=== PATIENT | female | born 1955 | race Hispanic/Latino ===

== ENCOUNTER 2020-12-29 15:08 | Inpatient (IN) | payer MEDICARE ==
[2020-12-29 16:22] LABS: #Basophils 0.1 thou/uL (0.0-0.2); #Eosinphils 0.3 thou/uL (0.0-0.7); #Lymphocytes 2.1 thou/uL (1.20-3.40); #Monocytes 0.7 thou/uL (0.11-0.59); #Neutrophils 9.7 thou/uL (1.40-6.50); %Basophils 0.6 % (0.0-1.0); %Eosinophils 2.7 % (0.0-10.0); %Lymphocytes 16.2 % (21.0-51.0); %Monocytes 5.2 % (0.0-10.0); %Neutrophils 75.3 % (42.0-75.0); Hemoglobin 11.9 g/dL (12.0-16.0); Mean Corpuscular HGB CONC 31.9 g/dL (32.0-36.0); Mean Corpuscular Hemoglobin 29.4 pg (27.0-31.0); Mean Corpuscular Volume 91.9 fL (78.0-98.0); Mean Platelet Volume 7.6 fL (7.4-10.4); Platelet Count 447 thou/uL (130-400); RBC Distribution Width 14.7 % (11.5-14.5); Red Blood Cell (RBC) Count 4.07 mill/uL (4.20-5.40); White Blood Cell (WBC) Count 12.9 thou/uL (4.8-10.8)
[2020-12-29 16:43] LABS: ALT (SGPT) 13 U/L (8-55); AST (SGOT) 11 U/L (5-34); Albumin 3.2 g/dL (3.4-4.8); Alkaline Phosphatase 119 U/L (40-110); Anion Gap 16 mmol/L (10-20); BUN (Urea Nitrogen) 26 mg/dL (9.8-20.1); Bilirubin, Total 0.3 mg/dL (0.2-1.2); Calc. Creatinine Clearance 0 mL/min (70-130); Calcium 11.3 mg/dL (7.8-10.44); Carbon Dioxide 26 mmol/L (23-31); Chloride 102 mmol/L (98-107); Globulin 4.2 g/dL (2.4-3.5); Glucose 181 mg/dL (80-115); Potassium 3.8 mmol/L (3.5-5.1); Protein, Total 7.4 g/dL (5.8-8.1); Sodium 140 mmol/L (136-145)
[2020-12-29 20:51] LABS: Bacteria/HPF 4+ HPF (None Seen); Bilirubin Negative (Negative); Blood, Urine Negative (Negative); Clarity Turbid (Clear); Glucose, Urine (Dipstick) Normal (Negative); Ketone, Urine 10 mg/dL (Negative); Leukocyte Negative Leu/uL (Negative); Nitrite Negative (Negative); Protein, Urine (Dipstick) 30 mg/dL (Neg-Trace); RBC/HPF 0-3 HPF (0-3); Specific Gravity, Urine 1.018 (1.002-1.036); Transitional Epithelial 0-3 HPF (None Seen); Urobilinogen Normal mg/dL (Less than 2); WBC/HPF 21-50 HPF (0-3)
[2020-12-29] MEDS ORDERED: cefTRIAXone\\ROCEPHIN 1 GM VIAL ONE (23:02)
[2020-12-30] MEDS ORDERED: Ondansetron ODT 4 MG TAB PO PRN (02:12)
[2020-12-30] MEDS ORDERED: Ondansetron PF 4 MG/2 ML Vial IVP PRN (02:12)
[2020-12-30 02:23] LABS: SARS-CoV-2 NAA Rapid Test Not Detected (NotDetected)
[2020-12-30] MEDS ORDERED: Ondansetron PF 4 MG/2 ML Vial ONE (03:39)
[2020-12-30] MEDS: Sodium Chloride 0.9% 1,000 ML IV SCH ×2 (03:52→11:12)
[2020-12-30 07:36] LABS: #Basophils 0.1 thou/uL (0.0-0.2); #Eosinphils 0.5 thou/uL (0.0-0.7); #Lymphocytes 2.2 thou/uL (1.20-3.40); #Monocytes 0.7 thou/uL (0.11-0.59); #Neutrophils 10.5 thou/uL (1.40-6.50); %Basophils 0.4 % (0.0-1.0); %Eosinophils 3.4 % (0.0-10.0); %Lymphocytes 15.6 % (21.0-51.0); %Neutrophils 75.7 % (42.0-75.0); Hemoglobin 11.1 g/dL (12.0-16.0); Mean Corpuscular HGB CONC 32.5 g/dL (32.0-36.0); Mean Corpuscular Hemoglobin 29.5 pg (27.0-31.0); Mean Corpuscular Volume 90.8 fL (78.0-98.0); Mean Platelet Volume 7.5 fL (7.4-10.4); Platelet Count 388 thou/uL (130-400); RBC Distribution Width 14.8 % (11.5-14.5); Red Blood Cell (RBC) Count 3.74 mill/uL (4.20-5.40); White Blood Cell (WBC) Count 13.9 thou/uL (4.8-10.8)
[2020-12-30 07:50] LABS: Anion Gap 15 mmol/L (10-20); BUN (Urea Nitrogen) 16 mg/dL (9.8-20.1); Calc. Creatinine Clearance 63 mL/min (70-130); Carbon Dioxide 25 mmol/L (23-31); Chloride 105 mmol/L (98-107); Glucose 155 mg/dL (80-115); Potassium 3.6 mmol/L (3.5-5.1); Sodium 141 mmol/L (136-145)
[2020-12-30] MEDS: HYDROcodone/Acetaminophen 5/325 mg Tablet PO PRN (10:37)
[2020-12-30] MEDS ORDERED: HumaLOG 300 UNITS/3 ML VIAL SC PRN ×2 (11:33)
[2020-12-30] MEDS ORDERED: Dextrose 50% Abboject 50 ML SYRINGE SLOW IVP PRN (11:33)
[2020-12-30] MEDS ORDERED: Dextrose 5% in Water 1,000 ML IV PRN (11:33)
[2020-12-30 14:02] LABS: Bacteria/HPF 3+ HPF (None Seen); Bilirubin Negative (Negative); Blood, Urine Negative (Negative); Clarity Turbid (Clear); Glucose, Urine (Dipstick) Normal (Negative); Ketone, Urine 40 mg/dL (Negative); Leukocyte 250 Leu/uL (Negative); Nitrite 1+ (Negative); Protein, Urine (Dipstick) 20 mg/dL (Neg-Trace); RBC/HPF 0-3 HPF (0-3); Specific Gravity, Urine 1.015 (1.002-1.036); Squamous Epithelial 0-3 HPF (0-3); Urobilinogen Normal mg/dL (Less than 2); WBC/HPF Greater than 50 HPF (0-3); pH, Urine 7.5 (5.0-9.0)
[2020-12-30 14:04] LABS: Urine Culture Reflex Yes Yes
[2020-12-30] MEDS ORDERED: Lactated Ringer's 500 ML IV SCH (14:15)
[2020-12-30] MEDS ORDERED: hydrALAZINE 20 MG/ML VIAL SLOW IVP PRN (15:07)
[2020-12-30] MEDS ORDERED: Labetalol HCl 100 MG/20 ML VIAL SLOW IVP PRN (15:08)
[2020-12-30] MEDS: Lactated Ringer's 1,000 ML IV SCH (16:46)
[2020-12-30] MEDS: cefTRIAXone\\ROCEPHIN 1 GM in Sodium Chloride 0.9% 100 ML IVPB SCH (23:04)
[2020-12-31] MEDS: Lactated Ringer's 1,000 ML IV SCH ×2 (00:20→15:25)
[2020-12-31 06:55] LABS: #Basophils 0.1 thou/uL (0.0-0.2); #Eosinphils 0.4 thou/uL (0.0-0.7); #Lymphocytes 1.7 thou/uL (1.20-3.40); #Monocytes 0.6 thou/uL (0.11-0.59); #Neutrophils 8.1 thou/uL (1.40-6.50); %Basophils 0.6 % (0.0-1.0); %Eosinophils 3.7 % (0.0-10.0); %Lymphocytes 15.6 % (21.0-51.0); %Monocytes 5.6 % (0.0-10.0); %Neutrophils 74.5 % (42.0-75.0); Hemoglobin 9.3 g/dL (12.0-16.0); Mean Corpuscular HGB CONC 32.9 g/dL (32.0-36.0); Mean Corpuscular Hemoglobin 29.9 pg (27.0-31.0); Mean Corpuscular Volume 90.9 fL (78.0-98.0); Mean Platelet Volume 7.4 fL (7.4-10.4); Platelet Count 318 thou/uL (130-400); Red Blood Cell (RBC) Count 3.12 mill/uL (4.20-5.40); White Blood Cell (WBC) Count 10.8 thou/uL (4.8-10.8)
[2020-12-31 07:14] LABS: Anion Gap 10 mmol/L (10-20); BUN (Urea Nitrogen) 10 mg/dL (9.8-20.1); Calc. Creatinine Clearance 63 mL/min (70-130); Calcium 8.9 mg/dL (7.8-10.44); Carbon Dioxide 27 mmol/L (23-31); Chloride 105 mmol/L (98-107); Glucose 110 mg/dL (80-115); Potassium 3.4 mmol/L (3.5-5.1); Sodium 139 mmol/L (136-145)
[2020-12-31] MEDS ORDERED: Alogliptin 25 MG TAB PO SCH (09:00)
[2020-12-31] MEDS ORDERED: glipiZIDE 10 MG TAB PO SCH (09:00)
[2020-12-31] MEDS: Lisinopril 20 MG TAB PO SCH (10:14)
[2020-12-31] MEDS: Carvedilol 25 MG TAB PO SCH ×2 (10:15→20:40)
[2020-12-31] MEDS: Amlodipine 10 MG TAB PO SCH (10:15)
[2020-12-31] MEDS: HYDROcodone/Acetaminophen 5/325 mg Tablet PO PRN ×2 (17:46→22:18)
[2020-12-31] MEDS: cefTRIAXone\\ROCEPHIN 1 GM in Sodium Chloride 0.9% 100 ML IVPB SCH (22:18)
[2021-01-01 05:10] LABS: Anion Gap 9 mmol/L (10-20); BUN (Urea Nitrogen) 13 mg/dL (9.8-20.1); Calc. Creatinine Clearance 53 mL/min (70-130); Calcium 8.9 mg/dL (7.8-10.44); Carbon Dioxide 25 mmol/L (23-31); Chloride 106 mmol/L (98-107); Glucose 64 mg/dL (80-115); Potassium 3.1 mmol/L (3.5-5.1); Sodium 137 mmol/L (136-145)
[2021-01-01 05:30] LABS: #Basophils 0.1 thou/uL (0.0-0.2); #Eosinphils 0.5 thou/uL (0.0-0.7); #Lymphocytes 2.3 thou/uL (1.20-3.40); #Monocytes 0.6 thou/uL (0.11-0.59); #Neutrophils 5.7 thou/uL (1.40-6.50); %Basophils 0.9 % (0.0-1.0); %Eosinophils 5.8 % (0.0-10.0); %Lymphocytes 25.3 % (21.0-51.0); %Monocytes 6.9 % (0.0-10.0); %Neutrophils 61.2 % (42.0-75.0); Hemoglobin 8.6 g/dL (12.0-16.0); Mean Corpuscular HGB CONC 32.8 g/dL (32.0-36.0); Mean Corpuscular Hemoglobin 29.8 pg (27.0-31.0); Mean Platelet Volume 7.6 fL (7.4-10.4); Platelet Count 288 thou/uL (130-400); Red Blood Cell (RBC) Count 2.89 mill/uL (4.20-5.40); White Blood Cell (WBC) Count 9.2 thou/uL (4.8-10.8)
[2021-01-01] MEDS: Lactated Ringer's 1,000 ML IV SCH ×2 (06:23→15:40)
[2021-01-01] MEDS ORDERED: Potassium Chloride 40 MEQ in Premix Bag 1 BAG IVPB SCH (09:00)
[2021-01-01 09:04] LABS: Hemoglobin A1c 5.6 % (4.0-6.0)
[2021-01-01] MEDS: Amlodipine 10 MG TAB PO SCH (09:37)
[2021-01-01] MEDS: Carvedilol 25 MG TAB PO SCH ×2 (09:37→22:10)
[2021-01-01] MEDS: Lisinopril 20 MG TAB PO SCH (09:38)
[2021-01-01] MEDS: HYDROcodone/Acetaminophen 5/325 mg Tablet PO PRN (22:09)
[2021-01-01] MEDS: cefTRIAXone\\ROCEPHIN 1 GM in Sodium Chloride 0.9% 100 ML IVPB SCH (22:10)
[2021-01-02] MEDS: Lactated Ringer's 1,000 ML IV SCH (00:24)
[2021-01-02 04:44] LABS: #Basophils 0.1 thou/uL (0.0-0.2); #Eosinphils 0.5 thou/uL (0.0-0.7); #Lymphocytes 2.2 thou/uL (1.20-3.40); #Monocytes 0.4 thou/uL (0.11-0.59); #Neutrophils 3.8 thou/uL (1.40-6.50); %Eosinophils 7.3 % (0.0-10.0); %Lymphocytes 30.9 % (21.0-51.0); %Monocytes 5.9 % (0.0-10.0); %Neutrophils 54.9 % (42.0-75.0); Hemoglobin 10.3 g/dL (12.0-16.0); Mean Corpuscular HGB CONC 35.6 g/dL (32.0-36.0); Mean Corpuscular Hemoglobin 32.1 pg (27.0-31.0); Mean Corpuscular Volume 90.3 fL (78.0-98.0); Mean Platelet Volume 9.3 fL (7.4-10.4); Platelet Count 240 thou/uL (130-400); RBC Distribution Width 14.9 % (11.5-14.5)
[2021-01-02 05:05] LABS: Anion Gap 11 mmol/L (10-20); BUN (Urea Nitrogen) 10 mg/dL (9.8-20.1); Calc. Creatinine Clearance 67 mL/min (70-130); Calcium 8.9 mg/dL (7.8-10.44); Carbon Dioxide 23 mmol/L (23-31); Chloride 106 mmol/L (98-107); Glucose 63 mg/dL (80-115); Potassium 3.7 mmol/L (3.5-5.1); Sodium 136 mmol/L (136-145)
[2021-01-02] MEDS: Amlodipine 10 MG TAB PO SCH (09:02)
[2021-01-02] MEDS: Carvedilol 25 MG TAB PO SCH ×2 (09:03→20:41)
[2021-01-02] MEDS: Lisinopril 20 MG TAB PO SCH (09:03)
[2021-01-02] MEDS: HYDROcodone/Acetaminophen 5/325 mg Tablet PO PRN (20:41)
[2021-01-02] MEDS: cefTRIAXone\\ROCEPHIN 1 GM in Sodium Chloride 0.9% 100 ML IVPB SCH (22:26)
[2021-01-03] MEDS: Amlodipine 10 MG TAB PO SCH (07:47)
[2021-01-03] MEDS: Carvedilol 25 MG TAB PO SCH ×2 (07:48→20:00)
[2021-01-03] MEDS: HYDROcodone/Acetaminophen 5/325 mg Tablet PO PRN (19:53)
[2021-01-04 08:42] VITALS: BMI 22.4
[2021-01-04] MEDS: Carvedilol 25 MG TAB PO SCH ×2 (09:32→20:30)
[2021-01-04] MEDS: Acetaminophen 325 MG TAB PO PRN ×3 (09:32→20:33)
[2021-01-04] MEDS: Amlodipine 10 MG TAB PO SCH (09:33)
[2021-01-04] MEDS: Polyethylene Glycol 3350 17 GM Packet PO SCH (09:33)
[2021-01-04] MEDS ORDERED: Amlodipine 10 MG TAB PO SCH (10:00)
[2021-01-04] MEDS ORDERED: diphenhydrAMINE 25 MG CAP PO PRN (11:16)
[2021-01-04] MEDS ORDERED: Ketorolac Tromethamine 30 MG/ML VIAL IVP SCH (11:30)
[2021-01-05] MEDS: Acetaminophen 325 MG TAB PO PRN ×3 (03:57→21:23)
[2021-01-05] MEDS: Polyethylene Glycol 3350 17 GM Packet PO SCH (08:41)
[2021-01-05] MEDS: Carvedilol 25 MG TAB PO SCH ×2 (08:41→21:21)
[2021-01-05] MEDS ORDERED: Amlodipine 10 MG TAB PO SCH (09:00)
[2021-01-06] MEDS: Carvedilol 25 MG TAB PO SCH (07:57)
[2021-01-06] MEDS: Polyethylene Glycol 3350 17 GM Packet PO SCH (07:57)
[2021-01-06] MEDS ORDERED: Carvedilol 25 MG TAB PO SCH (08:28)
[2021-01-06] MEDS ORDERED: Carvedilol 6.25 MG TAB PO SCH (09:00)
[2021-01-06 11:37] VITALS: BP 110/56; TEMP 98.1
== END 2021-01-06 14:37 | DRG 871 ==
LOC: ERS 15:08 → ERHOLD 12-30 00:04 → 2NO 12-30 06:47 → OBSVTOIN 12-30 11:25
PROVIDERS: ADMIT Student in an Organized Health Care Education/Training Program; ATTEND Internal Medicine
DX: A41.59 Other Gram-negative sepsis (principal); G93.41 Metabolic encephalopathy; J69.0 Pneumonitis due to inhalation of food and vomit; I69.951 Hemiplegia and hemiparesis following unspecified cerebrovascular disease affecting right dominant side; N39.0 Urinary tract infection, site not specified; Z20.822 Contact with and (suspected) exposure to COVID-19; M54.9 Dorsalgia, unspecified; G89.29 Other chronic pain; E87.5 Hyperkalemia; G93.89 Other specified disorders of brain; I11.0 Hypertensive heart disease with heart failure; I50.9 Heart failure, unspecified; R09.02 Hypoxemia; E78.5 Hyperlipidemia, unspecified; K59.00 Constipation, unspecified; R13.10 Dysphagia, unspecified; E11.9 Type 2 diabetes mellitus without complications; Z79.899 Other long term (current) drug therapy; Z79.84 Long term (current) use of oral hypoglycemic drugs; Z90.49 Acquired absence of other specified parts of digestive tract
CPT/HCPCS: 36415; 36416; 51701; 70450; 71045; 74230; 80048; 80053; 81001; 81003; 81015; 83036; 83605; 83690; 84145; 84443; 85025; 87040; 87077; 87086; 87186; 93005; 95712; 95819; 95957; 96365; 96366; 96375; G0378; J0696; J1885; J2405; J3480; J3490; U0002; U0005

== ENCOUNTER 2021-02-03 10:19 | Outpatient (CLI) | payer MEDICARE ==
[2021-02-03 20:02] LABS: SARS-CoV-2 PCR by NAA Not Detected (NotDetected)
== END 2021-02-03 10:20 | disposition home or self-care (01) ==
LOC: LABBT 10:19
PROVIDERS: ATTEND Internal Medicine
DX: Z01.812 Encounter for preprocedural laboratory examination (principal); Z20.822 Contact with and (suspected) exposure to COVID-19
CPT/HCPCS: U0003; U0005

== ENCOUNTER 2021-02-04 06:23 | Day surgery (SDC) | payer MEDICARE ==
[2021-02-03 14:23] VITALS: BMI 21.4
[2021-02-04] MEDS ORDERED: PROPOFOL 200 MG/20 ML VIAL ONE (09:03)
[2021-02-04] MEDS ORDERED: Ondansetron PF 4 MG/2 ML Vial ONE (11:10)
== END 2021-02-04 12:01 | disposition home or self-care (01) ==
LOC: SDC 06:23
PROVIDERS: ATTEND Internal Medicine
PROC: 0D738ZZ Dilation of Lower Esophagus, Via Natural or Artificial Opening Endoscopic (ICD-10-PCS; principal; 2021-02-04)
PROC: 0DB38ZX Excision of Lower Esophagus, Via Natural or Artificial Opening Endoscopic, Diagnostic (ICD-10-PCS; 2021-02-04)
PROC: 0DBM8ZX Excision of Descending Colon, Via Natural or Artificial Opening Endoscopic, Diagnostic (ICD-10-PCS; 2021-02-04)
DX: K22.2 Esophageal obstruction (principal); K44.9 Diaphragmatic hernia without obstruction or gangrene; K22.8 Other specified diseases of esophagus; K21.00 Gastro-esophageal reflux disease with esophagitis, without bleeding; K22.10 Ulcer of esophagus without bleeding; K29.80 Duodenitis without bleeding; K26.9 Duodenal ulcer, unspecified as acute or chronic, without hemorrhage or perforation; K64.4 Residual hemorrhoidal skin tags; K64.8 Other hemorrhoids; K59.00 Constipation, unspecified; D12.2 Benign neoplasm of ascending colon; E11.9 Type 2 diabetes mellitus without complications; E78.5 Hyperlipidemia, unspecified; I69.951 Hemiplegia and hemiparesis following unspecified cerebrovascular disease affecting right dominant side; I10 Essential (primary) hypertension; R63.4 Abnormal weight loss; Z68.21 Body mass index [BMI] 21.0-21.9, adult; Z79.899 Other long term (current) drug therapy; Z90.49 Acquired absence of other specified parts of digestive tract; Z86.010 Personal history of colon polyps
CPT/HCPCS: 36416; 88305; J2405; J2704